=== PATIENT | male | born 1950 | race Caucasian/White ===

== ENCOUNTER 2021-03-22 06:50 | Day surgery (SDC) | payer MEDICARE, BC ==
[~2021-03-22 06:50] MED LIST: Sodium Chloride 0.9% 10 ML Syringe FLUSH PRN
[2021-03-22] MEDS ORDERED: Glycopyrrolate 0.2 MG/ML 5 ML MDV IV ONE (06:51)
[2021-03-22] MEDS ORDERED: Lidocaine 2% 5 ML SDV INJECT ONE (06:51)
[2021-03-22] MEDS ORDERED: Propofol 200 MG/20 ML SDV IV ONE (06:51)
[2021-03-22] MEDS: Lactated Ringers 1,000 ML IV SCH (07:37)
--- NOTE | 2021-03-22 08:15 | PCM.HP.2 ---
H&P History of Present Illness - General Date of Service: 03/22/21 Admit Problem/Dx: Admission Diagnosis/Problem Admission Diagnosis/Problem Colonoscopy Source of Information: Patient, Old Records History Limitations: Reports: No Limitations - History of Present Illness Initial Comments - Free Text/Narative: Here for screening colonoscopy for FH Colon ca in Father - Related Data Allergies/Adverse Reactions: Allergies Allergy/AdvReac Type Severity Reaction Status Date / Time No Known Allergies Allergy Verified 03/22/21 07:35 Home Medications: Home Meds Simvastatin [Zocor] 20 mg PO DAILY 03/21/21 [History] Melatonin 2.5 mg PO BEDTIME PRN 03/22/21 [History] Past Medical History HEENT History: Reports: Impaired Vision Cardiovascular History: Reports: High Cholesterol, Hypertension Respiratory History: Reports: None Gastrointestinal History: Reports: GERD Genitourinary History: Reports: BPH Musculoskeletal History: Reports: Osteoarthritis Neurological History: Reports: None Psychiatric History: Reports: None Endocrine/Metabolic History: Reports: Obesity/BMI 30+ Hematologic History: Reports: None Immunologic History: Reports: None Oncologic (Cancer) History: Reports: None Dermatologic History: Reports: None - Past Surgical History Head Surgeries/Procedures: Reports: None HEENT Surgical History: Reports: Naso-Sinus Surgery Cardiovascular Surgical History: Reports: None Respiratory Surgical History: Reports: None GI Surgical History: Reports: Colonoscopy Male Surgical History: Reports: None Endocrine Surgical History: Reports: None Neurological Surgical History: Reports: None Musculoskeletal Surgical History: Reports: Hip Replacement Other Musculoskeletal Surgeries/Procedures:: LEFT TOTAL HIP Oncologic Surgical History: Reports: None Dermatological Surgical History: Reports: None Social & Family History - Tobacco Use Tobacco Use Status *Q: Never Tobacco User - Caffeine Use Caffeine Use: Reports: None - Recreational Drug Use Recreational Drug Use: No H&P Review of Systems - Review of Systems: Review Of Systems: Comprehensive ROS is negative, except as noted in HPI. Exam - Exam Exam: See Below - Vital Signs Vital Signs: Last Vital Signs Temp 98.2 F 03/22/21 07:16 Pulse 63 03/22/21 07:16 Resp 16 03/22/21 07:16 BP 147/88 H 03/22/21 07:16 Pulse Ox 95 03/22/21 07:16 Weight: 107.955 kg - Exam General: Alert, Oriented Lungs: Clear to Auscultation, Normal Respiratory Effort Cardiovascular: Regular Rate, Regular Rhythm GI/Abdominal Exam: Normal Bowel Sounds, Soft, Non-Tender Sepsis Event Note - Focused Exam Vital Signs: Vital Signs Temp Pulse Resp BP Pulse Ox 03/22/21 07:16 98.2 F 63 16 147/88 H 95 Problem List Initiated/Reviewed/Updated: Yes Orders Last 24hrs: Active Orders 24 hr Category Date Time Status Patient Status [ADT] Routine ADT 03/22/21 06:45 Active Patient to Empty Bladder [RC] ASDIRECTED Care 03/22/21 06:45 Active Verify Patient Consent Obtain [RC] ASDIRECTED Care 03/22/21 06:45 Active Nothing Per Oral Diet [DIET] Diet 03/22/21 Breakfast Ordered Lactated Ringers [Ringers, Lactated] 1,000 ml Med 03/22/21 06:45 Active IV ASDIRECTED Sodium Chloride 0.9% [Saline Flush] Med 03/22/21 06:45 Active 10 ml FLUSH ASDIRECTED PRN Peripheral IV Insertion Adult [OM.PC] Routine Oth 03/22/21 06:45 Ordered Resuscitation Status Routine Resus Stat 03/21/21 11:03 Ordered Medication Orders Lactated Ringer's (Ringers, Lactated) 1,000 mls @ 125 mls/hr IV ASDIRECTED MIGUELANGEL Last Admin: 03/22/21 07:37 Dose: 125 mls/hr Documented by: SHERRY Sodium Chloride (Sodium Chloride 0.9% 10 Ml Syringe) 10 ml FLUSH ASDIRECTED PRN PRN Reason: Keep Vein Open Assessment/Plan Comment:: FH Colon Cancer; Risks and complications reviewed, consent obtained - Mortality Measure Prognosis:: Good
--- NOTE | 2021-03-22 08:34 | PCM.OPNOTE ---
- General Post-Op/Procedure Note Date of Surgery/Procedure: 03/22/21 Operative Procedure(s): Colonoscopy Findings: normal Pre Op Diagnosis: FH Colon ca Post-Op Diagnosis: Same Anesthesia Technique: MAC Primary Surgeon: Allan Washburn Complications: None Condition: Good
--- NOTE | 2021-03-22 12:56 | OR ---
DATE OF OPERATION: 03/22/2021 SURGEON: Allan Washburn MD PREOPERATIVE DIAGNOSIS: Family history of colon cancer in father. POSTOPERATIVE DIAGNOSIS: Normal colonoscopy. PROCEDURE: Colonoscopy. ANESTHESIA: IV sedation. DESCRIPTION OF PROCEDURE: The patient was brought to the procedure room where he was placed on his left side and IV sedation administered. Digital rectal exam was performed which was normal. The colonoscope was inserted and advanced to the level of the cecum without difficulty. Cecal position was confirmed by identifying the appendiceal lumen and ileocecal valve. Prep was good and surfaces were well visualized. He did have 1 episode of a vagal response going around the hepatic flexure that responded quickly once pressure was released. Upon withdrawing the scope, the ascending, transverse, and descending colon were normal in appearance. Sigmoid colon and rectum were normal. Retroflexion was normal. Air was removed and the scope withdrawn. The patient tolerated the procedure well and returned to recovery in stable condition. The patient could consider 1 more colonoscopy in 5 years because of his family history of colon cancer. /[id number] KENDRA/LEONARDO
== END 2021-03-22 09:09 | disposition home or self-care (01) ==
LOC: FB.SDS 06:50
PROVIDERS: ATTEND Surgery
DX: Z12.11 Encounter for screening for malignant neoplasm of colon (principal); E78.00 Pure hypercholesterolemia, unspecified; I10 Essential (primary) hypertension; E66.9 Obesity, unspecified; Z98.890 Other specified postprocedural states; Z68.33 Body mass index [BMI] 33.0-33.9, adult; Z80.0 Family history of malignant neoplasm of digestive organs; Z79.899 Other long term (current) drug therapy
CPT/HCPCS: 00812; G0105; J2704; J3490; J7120